=== PATIENT | male | born 1990 | race Caucasian/White ===

== ENCOUNTER 2018-02-01 01:54 | Emergency (ER) | payer BC ==
[~2018-02-01] VITALS: Ht 175.3 cm; Wt 166.0 kg
--- NOTE | 2018-02-01 01:54 | NUR ---
PT BIB SELF, PT C/O SORE THROAT X 1 WEEK. NO SOB W/ PAIN 02/07. VSS NAD. A/OX4 ABLE TO MAKE NEEDS KNOWN. WILL CONTINUE TO MONITOR FOR ANY CHANGES DURING THE SHIFT.
[2018-02-01] MEDS ORDERED: PIPERACILLIN /TAZOBACTAM 3.375 G in IV D5W 50 ML IV ONE (02:30)
[2018-02-01] MEDS ORDERED: DEXAMETHASONE SOD PHOSPHATE 10 MG/ML VIAL IV ONE (02:30)
--- NOTE | 2018-02-01 02:33 | NUR ---
ER AT BEDSIDE FOR EVAL
[2018-02-01] MEDS ORDERED: PIPERACILLIN /TAZOBACTAM 3.375 G VIAL IV ONE (02:36)
[2018-02-01] MEDS ORDERED: DEXAMETHASONE SOD PHOSPHATE 10 MG/ML VIAL ONE (02:36)
--- NOTE | 2018-02-01 02:40 | NUR ---
SERVICE OPERATIONS MANAGER AT BEDSIDE TO COLLECT BLOOD
--- NOTE | 2018-02-01 02:58 | NUR ---
OCC MED PHYSICIAN AT BEDSIDE
[2018-02-01 02:59] LABS: BASOPHILS % (AUTO) 0.3 % (0.0-2.0); EOSINOPHILS % (AUTO) 1.8 % (0.0-6.0); HEMATOCRIT 40 % (39-51); LYMPHOCYTES # (AUTO) 2.8 /CMM (0.8-4.8); LYMPHOCYTES % (AUTO) 20.6 % (20.0-44.0); MEAN CORPUSCULAR HGB CONC 33 g/dl (31.0-36.0); MEAN CORPUSCULAR VOLUME 79 fL (80-96); MONOCYTES # (AUTO) 0.7 /CMM (0.1-1.30); MONOCYTES % (AUTO) 5.3 % (2.0-12.0); NEUTROPHILS # (AUTO) 9.9 /CMM (1.8-8.9); PLATELET COUNT (AUTO) 454 /CMM (150-450); RDW COEFFICIENT OF VARIATION 14.6 (11.5-15.0); WHITE BLOOD COUNT (AUTO) 13.7 K/uL (4.3-11.0)
[2018-02-01] MEDS ORDERED: IOHEXOL-300 100 ML VIAL IV ONE (02:59)
[2018-02-01] MEDS ORDERED: IV NS 0.9% 250 ML IV ONE (02:59)
[2018-02-01 03:08] LABS: CALCIUM, SERUM 8.9 mg/dL (8.5-10.1); CREATININE 0.5 mg/dL (0.6-1.3); POTASSIUM 4.2 mmol/L (3.5-5.1)
[2018-02-01 03:10] LABS: INR 0.96 (0.87-1.13)
[2018-02-01 03:16] LABS: ALBUMIN 3.3 g/dL (3.4-5.0); BILIRUBIN,TOTAL 0.3 mg/dL (0.2-1.0); TOTAL PROTEIN, SERUM 8.5 g/dL (6.4-8.2)
[2018-02-01] MEDS ORDERED: HYDROMORPHONE INJ 2 MG/ML DISP.SYRIN ONE (04:42)
[2018-02-01] MEDS ORDERED: ONDANSETRON HCL/PF 4 MG/2 ML VIAL ONE (04:42)
[2018-02-01] MEDS ORDERED: HYDROMORPHONE 1 MG/1 ML DISP.SYRIN IV ONE (05:00)
[2018-02-01] MEDS ORDERED: ONDANSETRON HCL/PF - ER 4 MG/2 ML VIAL IV ONE (05:00)
[2018-02-01 05:50] LABS: MONOTEST NEGATIVE (NEGATIVE)
--- NOTE | 2018-02-01 07:11 | NUR ---
RECEIVED REPORT FOR [facility].
--- NOTE | 2018-02-01 07:13 | NUR ---
dr sedrick dueñas paged at [phone]
[2018-02-01 08:01] VITALS: BP 171/92
--- NOTE | 2018-02-01 08:03 | NUR ---
Dr. Fernandez spoke with patient at bedside, re-evaluated and cleared for discharge. IV removed. Catheter intact and site benign. Pressure and 4x4 applied to site. No bleeding noted. Patient discharged to home in stable condition. Written and verbal after care instructions given. Patient verbalizes understanding of instruction.
== END 2018-02-01 08:03 | disposition home or self-care (01) ==
LOC: ER 01:54
DX: J03.80 Acute tonsillitis due to other specified organisms (principal); B96.89 Other specified bacterial agents as the cause of diseases classified elsewhere; E66.9 Obesity, unspecified
CPT/HCPCS: 36415; 70491; 80053; 85025; 85610; 86308; 87070; 87081; 87880; 96365; 96375; 99285; A4606; J1100; J1170; J2405 ×2; J2543 ×2; J7050; J7060; Q9967; Z7610; 86403-TC